=== PATIENT | male | born 1985 | race Caucasian/White ===

== ENCOUNTER 2022-11-14 00:35 | Emergency (ER) | payer OTHER ==
[~2022-11-14] VITALS: Ht 182.9 cm; Wt 77.6 kg
[2022-11-14 00:40] VITALS: BP 140/90
--- NOTE | 2022-11-14 00:48 | NUR ---
TO LOBBY FOLLOWING TRIAGE, SWABS OBTAINED
--- NOTE | 2022-11-14 01:09 | NUR ---
pt to bed 9
[2022-11-14] MEDS ORDERED: IBUPROFEN 400 MG TAB PO ONE (01:45)
[2022-11-14] MEDS ORDERED: ACET-10509 PO (01:52)
[2022-11-14] MEDS ORDERED: NAPR-54 PO (01:52)
[2022-11-14] MEDS ORDERED: TAM75 PO (01:52)
[2022-11-14] MEDS ORDERED: KETOROLAC 30 MG/ML VIAL IM ONE (02:05)
[2022-11-14 02:33] VITALS: BP 140/90
--- NOTE | 2022-11-14 02:33 | NUR ---
Patient discharged with v/s stable. Written and verbal after care instructions given and explained. Patient alert, oriented and verbalized understanding of instructions. Ambulatory with steady gait. All questions addressed prior to discharge. ID band removed. Patient advised to follow up with PMD. Rx of TYLENOL, NAPROSYN, TAMIFLU given. Patient educated on indication of medication including possible reaction and side effects. Opportunity to ask questions provided and answered.
== END 2022-11-14 02:23 | disposition home or self-care (01) ==
LOC: MED 00:35
DX: J10.1 Influenza due to other identified influenza virus with other respiratory manifestations (principal); F11.10 Opioid abuse, uncomplicated; Z20.822 Contact with and (suspected) exposure to COVID-19; Z79.899 Other long term (current) drug therapy; Z79.1 Long term (current) use of non-steroidal anti-inflammatories (NSAID)
CPT/HCPCS: 87426; 87804; 96372; 99283; J1885